=== PATIENT | female | born 1990 | race Two or more races ===

== ENCOUNTER 2025-01-07 10:51 | Outpatient (REF) | payer MEDICAID, SELFPAY ==
--- OUTSIDE RECORDS SUMMARY | 2025-01-07 09:00 | XMS_ITS | Encounter Summary ---
Author Organization [employer] Address [address] [place] [address] Care Team Providers Care Bail Attacher Name Role Phone Selam Ernst NP Primary Care Provider [phone] Encounter Details Date Type Department Care Team ([facility] st Contact Info) Description 01/07/2025 9:00 AM EST Office Visit [facility] [address] [place] [address] Selam Ernst NP [address] [place] [address] Nausea and vomiting, unspecified vomiting type (Primary Dx); Muscle spasm of right shoulder; Anxiety and depression; H/O hyperglycemia; Urinary urgency; Healthcare maintenance Social History Tobacco Use Types Packs/Day Years Used Date Smoking Tobacco: Every Day Cigarettes Passive Smoke Exposure: Current Smokeless Tobacco: Current Tobacco Cessation:Ready to Q uit: Not Asked; Counseling Given: Not Answered Depression Answer Date Recorded Patient Health Questionnaire-9 Score 18 01/07/2025 Patient Health Questionnaire-9 Score 18 01/07/2025 Last PHQ-9: Questionnaire Data Not on file 1 03/09/2024 Housing Stability Answer Date Recorded What is your housing situation today? I have kathleen nava 01/07/[address] you li ve. Do you have problems with any of the following? None of the above 01/07/2025 Food Insecurity Answer Date Recorded Within the past 12 months, y ou worried that your food would run out before you got money to buy more: Sometimes True 2024 Within the past 12 months,th e food you bought just didn't last and you didn't have enough money to get more: Sometimes True 01/07/2025 Transportation Answer Date Recorded In the past 12 months, has l ack of transportation kept you from medical appts, meetings, work or from getting things needed for daily living? No 01/07/2025 Utilities Answer Date Recorded In the past 12 months, has t he electric, gas, oil or water company threatened to shut off services in your home? No 01/07/2025 Depression Answer Date Recorded Patient Health Questionnaire-2 Score 2 01/07/2025 Internet Access Answer Date Recorded Internet Access Q1 Yes 01/07/2025 Internet Access Q2 Not on file 01/07/2025 Comments Unknown Sex and Gender Information Value Date Recorded Sex Assigned at Female 2024 4:00 PM EDT Legal Sex Female 9:49 AM EDT Gender Identity Female 01/06/2025 8:39 AM EST Sexual Orientation Straight 01/06/2025 8: 39 AM EST documented as of this encounter Last Filed Vital Signs Vital Sign Reading Time Taken Comments Blood Pressure 108/64 01/07/2025 9:40 AM EST Pulse 95 01/07/2025 9:40 AM EST Temperature 36.5 C (97.7 F) 01/07/2025 9:40 AM EST Respiratory Rate 14 01/07/2025 9:40 AM EST Oxygen Saturation 99% 01/07/2025 9:40 AM EST Inhaled Oxygen Concentration - - Weight 83.5 kg (184 lb) 01/07/2025 9:40 AM EST Height 166 cm (5' 5.35 ) 01/07/2025 9:40 AM EST Body Mass Index 30.29 01/07/2025 9:40 AM EST documented in this encounter Functional Status * Over the past 2 weeks, how often have you been bothered by any of the following problems? Question Answer Date of Assessment Author Patient Health Questionnaire-2 Score 2 01/07/2025 10:50 AM EST Char Schneider [place] * Little interest or pleasure in doing things Answer Date of Assessment Author Several days 01/07/2025 10:50 AM EST Char Madison [place], [place] * Feeling down, depressed, or hopeless Answer Date of Assessment Author Several days 01/07/2025 10:50 AM EST Char Madison [place], [place] * Trouble falling or staying asleep, or sleeping too much Answer Date of Assessment Author Nearly every day 01/07/2025 10:50 AM Char Alejandro MA * Feeling tired or having little energy Answer Date of Assessment Author Nearly every day 01/07/2025 10:50 AM Char Alejandro MA * Poor appetite or overeating Answer Date of Assessment Author Nearly every day 01/07/2025 10:50 AM Char Alejandro MA * Feeling bad about yourself - or that you are a failure or have let yourself or your family down Answer Date of Assessment Author Several days 01/07/2025 10:50 AM Char Garrido [place], [place] * Trouble concentrating on things, such as reading the newspaper or watching television Answer Date of Assessment Author Nearly every day 01/07/2025 10:50 AM Char Alejandro MA * Moving or speaking so slowly that other people could have noticed? Or the opposite - being so fidgety or restless that you have been moving around a lot more than usual. Answer Date of Assessment Author More than half the days 01/07/2025 10:50 AM Char Mendiola MA * Thoughts that you would be better off or hurting yourself in some way Answer Date of Assessment Author Several days 01/07/2025 10:50 AM Char Garrido [place], [place] * Patient Health Questionnaire-9 Score Answer Date of Assessment Author 18 01/07/2025 10:50 AM Char Garrido [place], [place] * How difficult have these problems made it for you to do your work, take care of things at home, or get along with other people? Answer Date of Assessment Author Somewhat difficult 01/07/2025 10:50 AM Char Mendiola MA * Over the last 2 weeks, how often have you been bothered by any of the following problems? Question Answer Date of Assessment Author Feeling nervous, anxious, or on edge 3 01/07/2025 10:50 AM Char Mendiola MA Not being able to stop or control worrying 3 01/07/2025 10:50 AM Char Mendiola MA Worrying too much about different things 3 01/07/2025 10:50 AM Char Mendiola MA Trouble relaxing 3 01/07/2025 10:50 AM Char Mendiola MA Being so restless that it is hard to sit still 2 01/07/2025 10:50 AM Char Mendiola MA Becoming easily annoyed or irritable 3 01/07/2025 10:50 AM Char Mendiola MA Feeling afraid as if something awful might happen 3 01/07/2025 10:50 AM Char Alejandro MA CHDA-7 Total Score 20 01/07/2025 10:50 AM Char Mendiola MA documented as of this encounter Progress Notes * Selam Ernst NP - 01/07/2025 9:00 AM EST Subjective: Juliette Perez is a 34 y.o. female who presents to the office for a new patient visit. She arrived from [place] this past August and was not seen by a doctor their. Interim history: She reports digestive symptoms since August. She has been vomiting everything including water. She has only been able to drink coffee and smoke cigarettes. She is having chest pain, abdominal pain, stomach ache, headaches, chills, dizziness. She reports that she has lost a lot of weight. Due to her inability to eat. The stomach pain starts when she eats and is relieved by vomiting. She always feelshungry. She reports constant shoulder and neck pain including 5 herniated discs since 25 yrs old. She has done physical therapy for this in the past. Reports urinary urgency and has noticed blood when she wipes Denies fever Problem List[1] Surgical History[2] Family History[3] Social History Living situation: cousin, mom, , 4 yr old. Came [place] 08/11/24 Employment/Education: [employer] Diet/exercise: regular diet, no exercise Substance use: -no alcohol -tobacco 1 pack/day -marijuana Sexual activity: yes Contraception: none Mental health: Patient Health Questionnaire-9 Score: 18 (01/07/2025 10:50 AM) Patient Health Questionnaire-2 Score: 2 (01/07/2025 10:50 AM) Thoughts that you would be better off or hurting yourself in some way: Several days (0:50 AM) CHAD-7 Total Score: 20 (01/07/2025 10:50 AM) Patient's last menstrual period was 12/18/2024 (exact date). Allergies[4] Review of Systems Constitutional: Positive for appetite change, fatigue and unexpected weight change. Negative for fever. Respiratory: Positive for chest tightness. Cardiovascular: Negative for leg swelling. Gastrointestinal: Positive for abdominal pain, anal bleeding, nausea and vomiting. Genitourinary: Positive for hematuria and urgency. Negative for dysuria. Musculoskeletal: Positive for arthralgias, myalgias, neck pain and neck stiffness. Skin: Negative for color change and rash. Neurological: Positive for dizziness, weakness, light-headedness and headaches. Hematological: Negative for adenopathy. Bruises/bleeds easily. Psychiatric/Behavioral: Positive for dysphoric mood. The patient is nervous/anxious. Vitals: 01/07/25 0940 BP: 108/64 BP Location: Left arm Patient Position: Sitting BP Cuff Size: Large adult Pulse: 95 Resp: 14 Temp: 97.7 ??F (36.5 ??C) TempSrc: Oral SpO2: 99% Weight: 184 lb (83.5 kg) Height: 5' 5.35 (1.66 m) PF: 95 L/min Physical Exam Constitutional: General: She is not in acute distress. Appearance: She is obese. She is not ill-appearing, toxic-appearing or diaphoretic. HENT: Head: Normocephalic. Eyes: General: Right eye: No discharge. Left eye: No discharge. Pupils: Pupils are equal, round, and reactive to light. Cardiovascular: Rate and Rhythm: Normal rate and regular rhythm. Heart sounds: Normal heart sounds. No murmur heard. No friction rub. No gallop. Pulmonary: Effort: Pulmonary effort is normal. No respiratory distress. Breath sounds: Normal breath sounds. No stridor. No wheezing, rhonchi or rales. Chest: Chest wall: No tenderness. Abdominal: General: Abdomen is flat. Bowel sounds are normal. Palpations: Abdomen is soft. There is no mass. Tenderness: There is abdominal tenderness. Hernia: No hernia is present. Musculoskeletal: Right shoulder: Tenderness present. Decreased range of motion. Cervical back: Rigidity and tenderness present. Lymphadenopathy: Cervical: No cervical adenopathy. Skin: General: Skin is warm and dry. Neurological: General: No focal deficit present. Mental Status: She is alert and oriented to person, place, and time. Psychiatric: Mood and Affect: Mood is depressed. Affect is tearful. Assessment & Plan Nausea and vomiting, unspecified vomiting type Patient reports this has been a problem for 5 months. test negative today. Abdominal pain is primarily in epigastric area. Will start Zofran to relieve nausea and vomiting while workup continues. Will check labs and consider GI referral. Differentials include gastritis, peptic ulcer, GERD, cholelithiasis, pancreatitis. Follow-up within 2 weeks after labs are completed. Orders: POCT Urine ondansetron (Zofran) 4 MG tablet; Take 2 tablets (8 mg) by mouth every 8 (eight) hours if needed for nausea or vomiting for up to 17 days. Comprehensive Metabolic Panel; Future CBC auto differential; Future Lipase; Future TSH W/Reflex to FT4; Future Muscle spasm of right shoulder Patient reports neck & shoulder pain has been a problem for at least 10 years, but has recentlyworsened. Physical exam revealed extreme muscle tension. Will do short course of muscle relaxer andfollow-up in 2 weeks. Will consider physical therapy and referral to physiatry. Orders: cyclobenzaprine (Flexeril) 10 MG tablet; Take 1 tablet (10 mg) by mouth 3 times daily for 17 days. Anxiety and depression Patient was tearful at this visit. CHAD-7 score: 20 PHQ-9 score: 18 was unable to consult at this visit, but made a phone appointment for next week. Patient is not suicidal/homicidal. Chose to focus on addressing patient's pain and nausea/vomiting at this time andwill discuss further mental health treatment at follow-up in 2 weeks. H/O hyperglycemia Glucose WNL today Orders: POCT Glucose POCT Hgb A1c Urinary urgency Denies dysuria. Urinalysis today was negative for UTI, but positive for small amount of blood. Willcheck labs and follow-up in 2 weeks. Orders: POCT Urinalysis Healthcare maintenance There was not enough time in this visit to address preventative care. Plan to discuss Pap Smear, immunizations, exercise and diet counseling at follow-up visit. Current Medications[5] There is no immunization history on file for this patient. Follow up in about 2 weeks (around 01/21/2025) for Recheck. [facility] MANAGER FINE Attestation MANAGER FINE Resident Attestation: Patient was seen and evaluated by Selam FELIPE , in collaboration with Radha Cárdenas MD who has reviewed my assessment and plan. I, Radha Cárdenas MD , have reviewed the resident's note and agree with the assessment & plan of care as documented above. Visit Conducted in: English Translation by: Provided by [employer] Phone Service ID # [id number] [1] There is no problem list on file for this patient. [2] No past surgical history on file. [3] No family history on file. [4] No Known Allergies [5] Current Outpatient Medications Medication Sig Dispense Refill cyclobenzaprine (Flexeril) 10 MG tablet Take 1 tablet (10 mg) by mouth 3 times daily for 17 days. 51 tablet 0 ondansetron (Zofran) 4 MG tablet Take 2 tablets (8 mg) by mouth every 8 (eight) hours if needed fornausea or vomiting for up to 17 days. 20 tablet 0 No current facility-administered medications for this visit. documented in this encounter Plan of Treatment Upcoming Encounters Date Type Department Care Team (Late st Contact Info) Description 01/26/2025 10:30 AM EST Office Visit [facility] [address] [place] [address] Selam Ernst NP [address] [place] [address] Scheduled Orders Name Type Priority Associated Diagnoses Orde r Schedule Comprehensive Metabolic Panel Lab Routine Nausea and vomiting, unspecified vomiting type Expected: 01/07/2025 (Approximate), Expires: 01/07/2026 CBC auto differential Lab Routine Nausea and vomiting, unspecified vomiting type Expected: 01/07/2025 (Approximate), Expires: 01/07/2026 Lipase Lab Routine Nausea and vomiting, unspecified vomiting type Expected: 01/07/2025, Expires: 01/07/2026 TSH W/Reflex to FT4 Lab Routine Nausea and vomiting, unspecified vomiting type Expected: 01/07/2025 (Approximate), Expires: 01/07/2026 documented as of this encounter Procedures Procedure Name Priority Date/Time Associated Diagnosis Comments POCT , URINE Routine 01/07/2025 10:22 AM EST Nausea and vomiting, unspecified vomiting type POCT URINALYSIS DIPSTICK Routine 01/07/2025 10:20 AM EST Urinary urgency POCT GLYCATED HEMOGLOBIN, TOTAL Routine 01/07/2025 9:44 AM EST H/O hyperglycemia POCT GLUCOSE Routine 01/07/2025 9:43 AM EST H/O hyperglycemia documented in this encounter Results * POCT Urine (01/07/2025 10:22 AM EST) Preg Test, Ur Negative Negative, Indeterminate, None Detected, Invalid, Specimen unsatisfactory for evaluation, Weakly Positive, 2+ QC Media Lot # [id number] Lot# Expiration Date Urine 01/07/2025 10:2 2 AM EST Selam Ernst NP POINT OF CARE TEST ENTER/EDIT O RDERABLES Final Result * (ABNORMAL) POCT Urinalysis (01/07/2025 10:20 AM EST) Color, UA Yellow Clarity, UA Clear Glucose, UA Negative Bilirubin, UA Trace Comment:small Ketones, UA Positive Comment:trace Spec Grav, UA 1.020 Blood, UA Positive(A) Negative, None Detected Comment:small pH, UA 6.5 Protein, UA Trace Urobilinogen, UA 1.0 Leukocytes, UA Negative Negative, Rare, Trace Nitrite, UA Negative Negative, None Detected Appearance, UA clear QC Media Lot # [id number] Lot# Expiration Date Urine (Urine, Random) 01/07/2025 10:20 AM EST Selam Ernst NP POINT OF CARE TEST ENTER/EDIT O RDERABLES Final Result * POCT Hgb A1c (01/07/2025 9:44 AM EST) Hemoglobin A1C 4.9 4.0 - 5.7 % QC Media Lot # [id number] Lot# Expiration Date Blood 01/07/2025 9:44 AM EST Selam Ernst NP POINT OF CARE TEST ENTER/EDIT O RDERABLES Final Result * POCT Glucose (01/07/2025 9:43 AM EST) Glucose Blood, POC 95 60 - 200 mg/dL Comment:Fasting QC Media Lot # [id number] Lot# Expiration Date ,579 Blood Capillary blood specimen / Unknown 01/07/2025 9:43 AM EST Selam Ernst NP POINT OF CARE TEST ENTER/EDIT O RDERABLES Final Result documented in this encounter Visit Diagnoses Diagnosis Nausea and vomiting, unspecified vomiting type- Primary Muscle spasm of right shoulder Anxiety and depression H/O hyperglycemia Urinary urgency Urgency of urination Healthcare maintenance documented in this encounter Additional Health Concerns Assessment Noted Time PHQ-9 Depression Total Score: 18 025 10:50 AM EST documented as of this encounter Care Teams Bail Attacher Relationship Specialty Start Date End Date Selam Ernst NP [address] [place] [id number] PCP - General Nurse Practitioner 01/07/25 documented as of this encounter
[2025-01-07 13:08] LABS: MANUAL DIFF FLAG NO
--- OUTSIDE RECORDS SUMMARY | 2025-01-07 13:09 | XMS_ITS | Clinical Summary ---
Author Organization [facility] [facility] Address [address] [facility] [address] [place] [address] Care Team Providers Care Garland Machine Operator Name Role Phone Selam Ernst NP Primary Care Provider [phone] Allergies No known active allergies Medications cyclobenzaprine (Flexeril) 10 MG tabletIndication s:Muscle spasm of right shoulder Take 1 tablet (10 mg) by mouth 3 times daily for 17 days. 51 tablet 5 01/25/20 25 Active ondansetron (Zofran) 4 MG tabletIndication s:Nausea and vomiting, unspecified vomiting type Take 2 tablets (8 mg) by mouth every 8 (eight) hours if needed for nausea or vomiting for up to 17 days. 20 tablet 5 01/25/20 25 Active Encounters Date Type Department Care Team Description 01/07/2025 9:00 AM EST Office Visit [facility] [address] [place] [phone] Selam Ernst NP Nausea and vomiting, unspecified vomiting type (Primary Dx); Muscle spasm of right shoulder; Anxiety and depression; H/O hyperglycemia; Urinary urgency; Healthcare maintenance 01/07/2025 Travel 01/06/2025 Telephone [facility] [address] [place] [address] [phone] Oswadlo Lama MA chart prep 12/03/2024 Population Health Risk Score [facility] ([facility]) Department [address] [place] [address] [phone] Provider, Population Health Generic 10/20/2024 Telephone [facility] [address] [place] [phone] Paulie Gilbert MD 10/19/2024 Telephone [facility] [address] [place] [address] Paulie Gilbert MD from Last 3 Months Social History Tobacco Use Types Packs/Day Years [...] your housing situation today? I have kathleen elijah 01/07/[address] you li [...] Orientation Straight 01/06/2025 8: 39 AM EST Last Filed Vital Signs Vital Sign Reading [...] Mass Index 30.29 01/07/2025 9:40 AM EST Plan of Treatment Upcoming Encounters Date Type Department Care Team (Late st Contact Info) Description 01/26/2025 10:30 AM EST Office Visit [facility] [address] [place] [address] Selam Ernst, ERIC [address] [place], [place] [phone] Health Maintenance Due Date Last Done Comments HIV Screening 1992 Lipid Panel 1992 Family Planning (PISQ) 12/16/2007 HPV Vaccines (1 - 3-dose series) 12/16/2007 Hepatitis C Screening 2010 DTaP/Tdap/Td Vaccines (1 - Tdap) 12/16/2011 Hepatitis B Vaccines (1 of 3 - 19+ 3-dose series) 12/16/2011 Pneumococcal Vaccine: Pediatrics (0 to 5 Years) and At-Risk Patients (6 to 49) Years (1 of 2 - PCV) 12/16/2011 Pap Smear 2013 Cervical Cancer Screening 2022 HPV/Cotest 2022 COVID-19 Vaccine (1 - 2023-2 5 season) 2024 Influenza Vaccine (#1) 2024 Depression Monitoring 07/07/2025 01/07/2025 , 01/07/2025 Alcohol/Substance Use Screening 01/07/2026 01/07/2025 Disability Screening 01/07/2026 01/07/2025 SDOH Screening 01/07/2026 01/07/2025 Tobacco Screening 01/07/2026 01/07/2025 Zoster Vaccines (1 of 2) 2042 RSV Patients and Patients Aged 60 years or older (1 - 1-dose 75+ series) 12/16/2067 HIB Vaccines Aged Out No longer eligi ble based on patient's age to complete this topic Hepatitis A Vaccines Aged Out No long er eligible based on patient's age to complete this topic IPV Vaccines Aged Out No longer eligi ble based on patient's age to complete this topic Meningococcal B Vaccine Aged Out No l onger eligible based on patient's age to complete this topic Meningococcal Vaccine Aged Out No yi deloris eligible based on patient's age to complete this topic RSV under 20 months Aged Out No longe r eligible based on patient's age to complete this topic Rotavirus Vaccines Aged Out No longer eligible based on patient's age to complete this topic Procedures Procedure Name Priority Date/Time Associated Diagnosis Comments POCT , URINE Routine 01/07/2025 10:22 AM EST Nausea and vomiting, unspecified vomiting type POCT URINALYSIS DIPSTICK Routine 01/07/2025 10:20 AM EST Urinary urgency POCT GLYCATED HEMOGLOBIN, TOTAL Routine 01/07/2025 9:44 AM EST H/O hyperglycemia POCT GLUCOSE Routine 01/07/2025 9:43 AM EST H/O hyperglycemia from Last 3 Months Results * POCT Urine (01/07/2025 10:22 AM EST) Preg Test, Ur Negative Negative, Indeterminate, None Detected, Invalid, Specimen unsatisfactory for evaluation, Weakly Positive, 2+ QC Media Lot # [id number] Lot# Expiration Date [id number] Urine 01/07/2025 10:2 2 AM EST Selam [...] Media Lot # [id number] Lot# Expiration Date Blood Capillary blood specimen / Unknown 01/07/2025 9:43 AM EST Selam Ernst NP POINT OF CARE TEST ENTER/EDIT O RDERABLES Final Result from Last 3 Months Insurance [facility] C3 Care Teams Garland Machine Operator Relationship Specialty Start Date End Date Selam Ernst NP [address] [place] [id number] PCP - General Nurse Practitioner 01/07/25
--- OUTSIDE RECORDS SUMMARY | 2025-01-07 13:09 | XMS_ITS | Encounter Summary ---
Author Organization [employer] Address [address] [facility] [address] [place] [address] Care Team Providers Care Associate Director Financial Aid Name Role Phone Unavailable Primary Care Provider Unavailabl e Reason for Visit * Reason Onset Date Comments chart prep 01/06/2025 Encounter Details Date Type Department Care Team ([facility] Contact Info) Description 01/06/2025 Telephone [facility] [address] [place] [address] Oswaldo Lama MA chart prep Social History Tobacco Use Types Packs/Day Years Used Date Smoking Tobacco: Never Assessed Depression Answer Date Recorded Patient Health Questionnaire-9 [...] AM EST documented as of this encounter Miscellaneous Notes * Telephone Encounter - Oswaldo Lama MA - 01/06/2025 3:04 PM EST Chart Prep Labs: not applicable Images: not applicable Referrals: not applicable Vaccines due: Covid, Flu, Tdap, Td, HPV, and DTAP Screenings: pap smear and LMP Overdue care gaps: SBIRT, SDOH, PHQ-9, CHAD-7, Oral health screening, and Disability screen documented in this encounter Plan of Treatment Upcoming Encounters Date Type Department Care Team (Late st Contact Info) Description 01/26/2025 10:30 AM EST Office Visit [facility] [address] [place], [place] [phone] Selam Ernst NP [address] [place] [address] documented as of this encounter Visit Diagnoses Not on filedocumented in this encounter
--- OUTSIDE RECORDS SUMMARY | 2025-01-07 13:09 | XMS_ITS | Patient Health Record ---
Author Organization [facility] Address [facility] [place] [address] Care Team Providers Care Sr. Vendor Management Associate Name Role Phone PEDRO SIL SOTO Primary Care Provider DAMIR OLIVEIRA Unavailable [phone] Reason For Referral No Information Medications Medication SIG (Take, Route, Frequency, Duration) Notes Start Date End Date Status Active Folic Acid Active Social History Tobacco Use: Social History Observation Description Date Details (start date - stop date) Never Smoker NA - NA Social History COVID-19 Social Info Question Answer Notes Cuestionario [place] COVID-19 Fecha 01/27/2020 Presenta algun sintoma: [place] Se smith realizado recientemente la prueba rapida o molecular para el COVID 19 No Conoce a alguien que haya sido positivo al COVID -19 No Smith participado de eventos pu blicos, sociales o familiares en los ultimos 14 wiley No Smith viajado fuera de [place] o smith estado en contacto con alguien que haya estado fuera de [place] en los pasados 14 wiley No [place] de Emergencia Social Info Question Answer Notes Historial Social Vivienda Con divya Sospecha de maltrato, violen sameer, u abuso sexual? No Viaje No viajo fuera de P.R. Inmunizacion al leatha Si Inmunizacion contra el tetano Si Transfuciones componentes sanguineos No Declina ser transfundido No Modo de llegada Auto Acompanado por Familiar Esposo Layton Chacon Tobacco Use: Social Info Question Answer Notes Tobacco Use/Smoking Are you a nonsmoker Section Notes: VISHAL LEE RN, ADN Lic . [id number], JOEY Araiza 01/09/2018 03:16:54 AM > VISHAL LEE RN, ADN Lic . [id number], JOEY M 01/09/2018 03:16:54 AM > VISHAL LEE RN, ADN Lic. [id number], JOEY M 01/09/2018 03:16:54 AM > MADDY SIBLEY RN, BSN Lic. [id number], JULIO CESAR 02/01/2018 08:32:15 PM > PRITESH XIONG RN BSN, Lic. [id number], ROSIBEL 01/27/2020 07:27:14 PM > Problems Problem Type SNOMED Code ICD Code Onset Dates Problem Status W/U Status Risk Notes Problem Drug allergy (351649205) Allergy history, drug (Z88.9) Active confirmed Plan Of Treatment No Information Insurance Providers Payer Name Payer Address Payer Phone Subscriber Number Group Number Insured Name Patient Relationship to Insured Coverage Start Date Coverage End Date MMM FFS PSG [address] [address] [place], [place] [id number] SHEREEN [place] Self - patient is the insured 0 0 Medical (General) History Medical History History ICD Code Discos herniados hipoglucemia gastritis Hospitalization History Reason Date(Month/Year) Gracie 28/01/2018
--- OUTSIDE RECORDS SUMMARY | 2025-01-07 13:09 | XMS_ITS | Encounter Summary ---
Author Organization [employer] Address [address] [facility] [address] [place] [address] Care Team Providers Care Automatic Chief Name Role Phone Selam Ernst NP Primary Care Provider [phone] Encounter Details Date Type Department Care Team (Latest Contact Info) Description 01/07/2025 Travel Social History Tobacco Use Types Packs/Day Years Used Date Smoking Tobacco: Every Day Cigarettes Passive Smoke Exposure: Current Smokeless Tobacco: Current Depression Answer Date Recorded Patient Health Questionnaire-9 [...] AM EST documented as of this encounter Functional Status * Over the past 2 weeks, how often have you been bothered by any of the following problems? Question Answer Date of Assessment Author Patient Health Questionnaire-2 Score 2 01/07/2025 10:50 AM Char Giles [place] * Little interest or pleasure in doing things Answer Date of Assessment Author Several days 01/07/2025 10:50 AM Char Garrido [place], [place] * Feeling down, depressed, or hopeless Answer Date of Assessment Author Several days 01/07/2025 10:50 AM Char Garrido [place], [place] * Trouble falling or staying [...] 3 01/07/2025 10:50 AM Char Alejandro MA CHAD-7 Total Score 20 01/07/2025 10:50 AM Char Mendiola [place] documented as of this encounter Plan of Treatment Upcoming Encounters Date Type Department Care Team (Late st Contact Info) Description 01/26/2025 10:30 AM EST Office Visit [facility] [address] [place] [address] Selam Ernst NP [address] [place] [address] documented as of this encounter Visit Diagnoses Not on filedocumented in this encounter Additional Health Concerns Assessment Noted Time PHQ-9 Depression Total Score: 18 025 10:50 AM EST documented as of this encounter Care Teams Automatic Chief Relationship Specialty Start Date End Date Selam Ernst NP [address] [place] [address] PCP - General Nurse Practitioner 01/07/25 documented as of this encounter
[2025-01-07 13:26] LABS: Hematocrit 43.0 % (37.0-47.0); Hemoglobin 14.3 g/dl (12.0-16.0); Imm Gran Abs Auto 0.01 X10*3/uL (0.00-0.03); Imm Gran Pct Auto 0.1 % (0.0-0.4); Lymphocytes Absolute Auto 2.0 X10*3/uL (1.2-4.9); Mean Corpuscular HGB Conc 33.3 g/dl (31.0-35.0); Mean Corpuscular Hemoglobin 31.1 pg (27.0-33.0); Mean Corpuscular Volume 93.5 fL (80.0-98.0); NRBC Abs Auto 0.000 X10*3/uL (0.0-0.012); NRBC Pct Auto 0.0 /100WBC (0.0-0.2); Platelet Count 226 X10*3/uL (160-400); Red Blood Count 4.60 X10*6/uL (4.20-5.50); White Blood Count 7.0 X10*3/uL (4.8-10.8)
[2025-01-07 14:05] LABS: Anion Gap 12 (12-20); Blood Urea Nitrogen 9 mg/dL (9-16); Carbon Dioxide 25 mmol/L (22-29); Chloride 108 mmol/L (96-108); Estimated Glomerular Filt Rate > 60; Potassium 4.1 mmol/L (3.3-5.1); Sodium 141 mmol/L (135-145)
[2025-01-07 14:06] LABS: Alanine Aminotransferase 33 U/L (0-31); Albumin Level 4.9 g/dL (3.5-5.0); Alkaline Phosphatase 71 U/L (39-117); Aspartate Amino Transferase 39 U/L (5-31); Calcium 9.7 mg/dL (8.4-10.2); Lipase 20 U/L (8-78); Total Protein 8.0 g/dL (6.5-8.0)
== END 2025-01-07 10:52 | disposition home or self-care (01) ==
LOC: HO.HHCL 10:51
DX: R11.2 Nausea with vomiting, unspecified (principal)
CPT/HCPCS: 36415; 80053; 83690; 84443; 85025

== ENCOUNTER 2025-02-09 06:31 | Emergency (ER) | payer MEDICAID, SELFPAY ==
[2025-02-09 06:54] VITALS: BP 110/60; PULSE 97; RESP 20; TEMP 36.2; O2SAT 100; BMI 29.5
--- NOTE | 2025-02-09 07:37 | ED_ITS ---
HPI - General Adult General Chief complaint: Skin/Abscess/Foreign Body Stated complaint: foreign skin/rash Source: patient Mode of arrival: ambulatory Limitations: no limitations History of Present Illness HPI narrative: Chief Complaint: ?Rash all over my body for the past two weeks.? History of Present Illness: 34-year-old female presents with a generalized rash that began on the shoulders two weeks ago and has progressively spread to involve the entire body. Initially evaluated by her PCP, where it was felt to be a reaction to Wellbutrin and treated with topical cortisone without improvement. The patient reports the rash is intensely itchy and uncomfortable; she now notes a burning sensation in the thigh regions. She denies any mucous membrane involvement. She describes two distinct morphologies: circular lesions on the abdomen that appear ?ring-like,? and elsewhere raised, warm, erythematous areas. The patient specifically notes that the rash on her abdomen seems to be different than the rash on the rest of her body. No household contacts with similar symptoms. Related Data Previous Rx's ?Medication ?Instructions ?Recorded cephalexin 500 mg tablet 500 mg PO Q6H 7 days #28 tab s 02/09/25 clotrimazole 1 % topical cream 1 appl topical BID 2 we eks #30 02/09/25 grams prednisone 20 mg tablet 40 mg (2 x 20 mg) PO DAILY 5 days 02/09/25 #10 tabs Allergies Allergy/AdvReac Type Severity Reaction Status Date / Time bupropion (From Wellbutrin) Allergy Rash Verified 02/09/25 07:01 Review of Systems Review of Systems: Skin: Positive for diffuse pruritic rash with burning sensation in thighs. Constitutional: Denies fever; appears nontoxic. Cardiorespiratory: Denies chest pain, shortness of breath. GI: Denies nausea, vomiting. Neurologic: Denies headache, dizziness, weakness. Eyes: Denies vision changes. No other systems reviewed. Yes all other systems are reviewed and are negative PMFSH Past Medical History Attestation statement: The following information was validated with the patient. Source: old records reviewed and nursing notes reviewed Social History Social History Advance Directives: No Advance Directives Information Provided: Yes Do you have a plan to hurt others: No Plan Physical Exam ED Exam Exam: General: Nontoxic appearing female in no acute distress. Skin: Diffuse raised erythematous lesions ( scapular region b/l) and errythema to inner thighs w/ exoriations; circular lesion on abdomen consistent with tinea-like appearance; no mucous membrane involvement. Cardiopulmonary: No respiratory or cardiac complaints noted on exam. Lungs clear. Regular rate and ryhem Vital Signs: Vital Signs - 24 hr 02/09/25 06:54 Temperature 97.2 F Pulse Rate 97 Respiratory Rate 20 Blood Pressure 110/60 Pulse Oximetry 100 Oxygen Delivery Method Room Air BMI result Body Mass Index 29.5 vss Medical Decision Making Medical Decision Making MDM Narrative: 34-year-old female with generalized pruritic rash, likely mixed etiologies (tinea corporis vs cellulitis vs drug eruption). Treated empirically and discharged. Problem?#1: Diffuse cellulitis Assessment: Raised, warm, erythematous lesions over multiple body areas concerning for superficial cellulitis. Plan: * Keflex prescribed at discharge. * Prednisone provided as adjunct per treating clinician. * Return precautions given for any new or worsening symptoms. Problem?#2: Tinea corporis (ringworm) Assessment: Circular lesion on abdomen characteristic of dermatophyte infection. Plan: * Clotrimazole topical cream prescribed. * If no improvement or spreading lesions, advised to return for re-evaluation. Differential Diagnosis Differential Diagnoses: The differential diagnosis associated with the presentation includes * Drug eruption: Recent exposure to Wellbutrin with rash onset following medication initiation; absence of mucous membrane involvement and lack of improvement with topical corticosteroids support this possibility. * Tinea corporis (ringworm): Presence of a distinct circular, ring-like lesion on the abdomen, differing in morphology from other affected areas, consistent with dermatophyte infection. * Cellulitis: Diffuse raised, warm, erythematous lesions on trunk and extremities suggest superficial skin infection. * Other dermatologic conditions: Consider urticaria, contact dermatitis, or pityriasis rosea given the generalized pruritic nature and variable morphologies of the rash. * Systemic infection: Less likely due to nontoxic appearance and absence of systemic symptoms such as fever, malaise, or organ involvement. * Autoimmune or connective tissue disease: Less likely in the absence of mucous membrane involvement, systemic features, or other suggestive findings. Admission/Observation Consideration of admission/observation: Escalation of care including admission/observation considered Lab Data No indication Discharge Plan Discharge Clinical Impression: Rash, Ringworm Patient Disposition: Home, Self-Care Instructions: Contact Dermatitis (ED), Acute Rash (ED) Additional Instructions: Take your medications as prescribed. If you were prescribed antibiotics today, it is important that you take your medication to their entirety, do not skip any doses, do not finish them early. Follow-up with your primary care provider this week. Return to the emergency department with new or worsening symptoms. In case of emergency call 911 Prescriptions: New clotrimazole 1 % cream 1 appl topical BID 14 Days Qty: 30 0RF prednisone 20 mg tablet 40 mg PO DAILY 5 Days Qty: 10 0RF cephalexin 500 mg tablet 500 mg PO Q6H 7 Days Qty: 28 0RF Referrals: Physician,Unknown J [Primary Care Provider, Medical] Print Language: Uzbek
[2025-02-09 07:43] VITALS: BP 110/60; PULSE 97; RESP 20; TEMP 36.2; O2SAT 100
--- OUTSIDE RECORDS SUMMARY | 2025-02-09 07:50 | XMS_ITS | Encounter Summary ---
Author Organization [employer] Address [address] [place] [address] [address] [place] [address] Care Team Providers Care Utility Clerk Name Role Phone Selam Ernst NP Primary Care Provider [phone] Encounter Details Date Type Department Care Team ([facility] Contact Info) Description 01/12/2025 Results Follow-Up [facility] [address] [place] [address] Selam Ernst, ERIC [address] [place] [address] POCT Glucose, POCT Hgb A1c, POCT Urine , Additional followed-up results: 5 Social History Tobacco Use Types Packs/Day Years Used Date Smoking Tobacco: Every Day Cigarettes Passive Smoke Exposure: Current Smokeless Tobacco: Current Depression Answer Date Recorded Patient Health Questionnaire-9 Score 19 01/14/2025 Patient Health Questionnaire-9 Score 19 01/14/2025 Last PHQ-9: Questionnaire Data Not on file 1 03/16/2024 Housing Stability Answer Date Recorded What is [...] Answer Date Recorded Patient Health Questionnaire-2 Score 4 01/14/2025 Internet Access Answer Date Recorded Internet Access [...] of Assessment Author Patient Health Questionnaire-2 Score 4 01/14/2025 10:42 AM Jg Crouch [facility] * Little interest or pleasure in doing things Answer Date of Assessment Author More than half the days 01/14/2025 10:42 AM Jg Retana [facility] * Feeling down, depressed, or hopeless Answer Date of Assessment Author More than half the days 01/14/2025 10:42 AM Jg Retana [facility] * Trouble falling or staying asleep, or sleeping too much Answer Date of Assessment Author More than half the days 01/14/2025 10:42 AM Jg Retana [facility] * Feeling tired or having little energy Answer Date of Assessment Author Nearly every day 01/14/2025 10:42 AM Jg Mills [facility] * Poor appetite or overeating Answer Date of Assessment Author Nearly every day 01/14/2025 10:42 AM Jg Mills [facility] * Feeling bad about yourself - or that you are a failure or have let yourself or your family down Answer Date of Assessment Author More than half the days 01/14/2025 10:42 AM Jg Retana [facility] * Trouble concentrating on things, such as reading the newspaper or watching television Answer Date of Assessment Author Nearly every day 01/14/2025 10:42 AM Jg Mills [facility] * Moving or speaking so slowly that other people could have noticed? Or the opposite - being so fidgety or restless that you have been moving around a lot more than usual. Answer Date of Assessment Author More than half the days 01/14/2025 10:42 AM Jg Retana [facility] * Thoughts that you would be better off or hurting yourself in some way Answer Date of Assessment Author Not at all 01/14/2025 10:42 AM Jg Sanabria LM[facility] * Patient Health Questionnaire-9 Score Answer Date of Assessment Author 19 01/14/2025 10:42 AM Jg Sanabria [facility] * Over the last 2 weeks, how often have you been bothered by any of the following problems? Question Answer Date of Assessment Author Feeling nervous, anxious, or on edge 3 01/14/2025 10:42 AM Jg Welch LM[facility] Not being able to stop or control worrying 3 01/14/2025 10:42 AM Jg Welch LM[facility] Worrying too much about different things 3 01/14/2025 10:42 AM Jg Welch LM[facility] Trouble relaxing 3 01/14/2025 10:42 AM Jg Retana LM[facility] Being so restless that it is hard to sit still 3 01/14/2025 10:42 AM Jg Welch LM[facility] Becoming easily annoyed or irritable 3 01/14/2025 10:42 AM Jg Welch LM[facility] Feeling afraid as if something awful might happen 3 01/14/2025 10:42 AM Jg Mills LMHC CHAD-7 Total Score 21 01/14/2025 10:42 AM Jg Retana LM[facility] * How difficult have these problems made it for you to do your work, take care of things at home, or get along with other people? Answer Date of Assessment Author Very difficult 01/14/2025 10:42 AM Jg Sanbaria LM[facility] documented as of this encounter Plan of Treatment Upcoming Encounters Date Type Department Care Team (Late st Contact Info) Description 02/18/2025 3:00 PM EST Office Visit [facility] [address] [place] [address] Selam Ernst NP [address] [place] [address] documented as of this encounter Visit Diagnoses Not on filedocumented in this encounter Additional Health Concerns Assessment Noted Time PHQ-9 Depression Total Score: 18 025 10:50 AM EST documented as of this encounter Care Teams Utility Clerk Relationship Specialty Start Date End Date Selam Ernst NP [address] [place] [address] PCP - General Nurse Practitioner 01/07/25 documented as of this encounter
--- OUTSIDE RECORDS SUMMARY | 2025-02-09 07:50 | XMS_ITS | Clinical Summary ---
Author Organization [employer] Address [address] [facility] [address] [place] [address] Care Team Providers Care Respiratory Equipment Assistant Name Role Phone Selam Ernst NP Primary Care Provider [phone] Allergies Active Allergy Reactions Criticality Noted Date Comments Bupropion Rash Low 01/26/2025 Medications * This document contains information received from the source organization and may not represent a complete record from that organization. cyclobenzaprine (Flexeril) 10 MG tabletIndication s:Muscle spasm of right shoulder Take 1 tablet (10 mg) by mouth if needed at bedtime for muscle spasms. 20 tablet 5 5:44 PM EST 01/15/20 25 025 Active ondansetron (Zofran) 4 MG tabletIndication s:Nausea 1-2 tablets PO TID prn nausea/vomi ting 30 tablet 5 5:44 PM EST 01/15/20 25 Active acetaminophen (Tylenol Extra Strength) 500 MG tablet Take 1 tablet (500 mg) by mouth every 6 (six) hours if needed for mild pain. 120 tablet 5 3:54 PM EST 01/15/20 25 025 Active senna-docusate (Senokot S) 8.6-50 MG tablet Take 1 tablet by mouth if needed each day for constipatio n. 30 tablet 5 3:54 PM EST 01/15/20 25 026 Active polyethylene glycol, PEG, 3350 (MiraLax) 17 GM/SCOOP powderIndication s:Constipation, unspecified constipation type Take 17 g by mouth Once per day. 510 g 5 4:40 PM EST 01/27/20 25 Active psyllium (Metamucil Smooth Texture) 58.6 % powderIndication s:Constipation Take 5.12 g (3 g of fiber) by mouth Once per day. 154 g 11 01/27/20 25 026 Active betamethasone dipropionate 0.05 % creamIndications :Eczema, unspecified type Apply 2 times daily for up to 14 days 45 g 5 4:40 PM EST 01/27/20 Active Omeprazole 20 MG tablet delayed-releaseI ndications:Pepti c ulcer disease Take 1 tablet (20 mg) by mouth 2 times daily. 60 tablet 3 01/27/20 Active escitalopram (Lexapro) 5 MG tabletIndication s:Anxiety,Modera tely severe major depression (CMS/HCC) (HCC) Take 1 tablet (5 mg) by mouth Once per day. 30 tablet 2 5 4:40 PM EST 01/27/20 25 026 Active hydrOXYzine HCl (Atarax) 25 MG tabletIndication s:Anxiety Take 1 tablet (25 mg) by mouth if needed each day for anxiety. 30 tablet 5 4:40 PM EST 01/27/20 Active cyclobenzaprine (Flexeril) 10 MG tabletIndication s:Muscle spasm of right shoulder Take 1 tablet (10 mg) by mouth 3 times daily for 17 days. 51 tablet 01/08/20 25 025 Discontinued(Re order (will not trigger notification to Pharmacy)) ondansetron (Zofran) 4 MG tabletIndication s:Nausea and vomiting, unspecified vomiting type Take 2 tablets (8 mg) by mouth every 8 (eight) hours if needed for nausea or vomiting for up to 17 days. 20 tablet 01/08/20 25 025 Discontinued(Re order (will not trigger notification to Pharmacy)) Omeprazole 20 MG tablet delayed-release Take 1 tablet (20 mg) by mouth Once per day. 60 tablet 01/15/20 25 025 Discontinued sucralfate (Carafate) 1 g tablet Take 1 tablet (1 g) by mouth before breakfast, before lunch, and before evening meal for 10 days. 30 tablet 3:54 PM EST 01/15/20 25 025 buPROPion SR (Wellbutrin SR) 150 MG 12 hr tablet Take 1 tablet (150 mg) by mouth 2 times daily. Do not crush, chew, or split. 60 tablet 2 3:54 PM EST 01/15/20 25 025 Discontinued(Si de effects) Active Problems Problem Noted Date Diagnosed Date Moderately severe major depression (CMS/HCC) Assessment & Plan (01/26/2025 11:51 AM EST): Orders: escitalopram (Lexapro) 5 MG tablet; Take 1 tablet (5 mg) by mouth Once per day. 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 Currently with passive SI, no plan apretude the factors include roman catholic and cultural beliefs + wants to be around for her 4-year-old son and wants to help her mother get better. She also has a job which evaluation wants to keep Started on Wellbutrin and follow-up with PCP in 3 to 4 weeks Patient feels safe at home and she will reach out to us in case of an emergency, she also has crisis number and we will put her on speed Dial. Anxiety 01/14/2025 Assessment & Plan (01/26/2025 11:51 AM EST): - Anxiety with episodes of panic attacks, chest pain, and palpitations. Wellbutrin discontinued due to suspected adverse reaction. - Initiated Lexapro at lowest dose, with option to titrate as needed. Prescribed hydroxyzine as needed for acute panic attacks. Scheduled follow-up in 2 to 4 weeks to monitor response to new medication. - Risks and side effects: hydroxyzine may cause drowsiness. Orders: escitalopram (Lexapro) 5 MG tablet; Take 1 tablet (5 mg) by mouth Once per day. hydrOXYzine HCl (Atarax) 25 MG tablet; Take 1 tablet (25 mg) by mouth if needed each day for anxiety. Acute gastritis without hemorrhage 01/14/2025 Assessment & Plan (01/14/2025 11:45 AM EST): - Prescribed sucralfate before meals for one week. - Rx omeprazole daily on an empty stomach for two months - Continue ondansetron in the morning and at night, Reduce Flexeril use to evenings only if needed (has side effect: sedation). Advised to consume nutritional supplements such as Ensure or carnation breakfast during the day. - Advised to avoid smoking both nicotine and cannabis which can worsen both gastric symptoms and anxiety. -Discussed red flags to go to ED: Persistent vomiting, fever, icterus, absent of BMx1+ week, GIB Elevated liver function tests 01/14/2025 Assessment & Plan (01/14/2025 11:41 AM EST): To [facility] PCP. Encounters * This document contains information received from the source organization and may not represent a complete record from that organization. Date Type Department Care Team Description 01/26/2025 10:30 AM EST Office Visit [facility] [address] [place] [phone] Sealm Ernst NP Eczema, unspecified type (Primary Dx); Peptic ulcer disease; Cervical radiculopathy; Constipation, unspecified constipation type; Anxiety; Moderately severe major depression (CMS/HCC) (HCC) 01/26/2025 Travel 01/25/[address] [facility] [address] [place] [phone] Selam Ernst NP Chart Prep 01/14/2025 11:00 AM EST Office Visit [facility] [address] [place] [phone] Juliette Joshi MD Acute gastritis without hemorrhage, unspecified gastritis type (Primary Dx); Elevated liver function tests; Moderately severe major depression (CMS/HCC) (HCC); Muscle spasm of right shoulder; Nausea; Epigastric pain 01/14/2025 Travel 01/14/[address] [facility] [address] [place] [phone] Selam Ernst NP Care Coordination ([facility] outreach for [facility] housing search-referral completed ) 01/13/[address] [facility] [place] [address] Oswaldo Lama MA Results 01/12/2025 Results Follow-Up [facility] [place] [address] Selam Ernst NP POCT Glucose, POCT Hgb A1c, POCT Urine , Additional followed-up results: 5 01/07/2025 9:00 AM EST Office Visit [facility] [place] [address] Selam Ernst NP Nausea and vomiting, unspecified vomiting type (Primary Dx); Muscle spasm of right shoulder; Anxiety and depression; H/O hyperglycemia; Urinary urgency; Healthcare maintenance 01/07/2025 Travel 01/06/2025 Telephone [facility] [place] [address] Oswaldo Lama MA chart prep 12/03/2024 Population Health Risk Score [facility] () Department [address] [place] [phone] Provider, Population Health Generic from Last 3 Months Social History Tobacco [...] Sign Reading Time Taken Comments Blood Pressure 124/68 01/26/2025 10:29 AM EST Pulse 99 01/26/2025 10:29 AM EST Temperature 36.6 C (97.8 F) 01/26/2025 10:29 AM EST Respiratory Rate 18 01/26/2025 10:29 AM EST Oxygen Saturation 98% 01/26/2025 10:29 AM EST Inhaled Oxygen Concentration - - Weight 83.1 kg (183 lb 4 oz) 01/26/2025 10:29 AM EST Height 167.6 cm (5' 6 ) 01/26/2025 10:29 AM EST Body Mass Index 29.58 01/26/2025 10:29 AM EST Plan of Treatment Upcoming Encounters Date Type Department Care Team (Late st Contact Info) Description 02/18/2025 3:00 PM EST Office Visit [facility] [address] [place] [address] Selam Ernst NP [address] [place], [place] [phone] Health Maintenance Due Date Last Done Comments [...] 2022 HPV/Cotest 2022 COVID-19 Vaccine (1 - 2024-2 6 season) 2024 Influenza Vaccine (#1) 2024 Depression Monitoring 07/14/2025 01/14/2025 , 01/14/2025 Alcohol/Substance Use Screening 01/07/2026 01/07/2025 Disability Screening 01/07/2026 01/07/2025 SDOH Screening 01/07/2026 01/07/2025 Tobacco Screening 01/26/2026 01/26/2025 Zoster Vaccines (1 of 2) 2042 RSV [...] Name Priority Date/Time Associated Diagnosis Comments POCT INFLUENZA A (ID NOW RAPID MOLECULAR) Routine 01/14/2025 11:35 AM EST Nausea POCT INFLUENZA B (ID NOW RAPID MOLECULAR) Routine 01/14/2025 11:34 AM EST Nausea POCT RAPID COVID ANTIGEN Routine 01/14/2025 11:26 AM EST Nausea TSH W/REFLEX TO FT4 Routine 01/07/2025 1 1:06 AM EST Nausea and vomiting, unspecified vomiting type LIPASE Routine 01/07/2025 11:06 AM EST Nausea and vomiting, unspecified vomiting type CBC WITH AUTO DIFFERENTIAL Routine 01/07/2025 11:06 AM EST Nausea and vomiting, unspecified vomiting type COMPREHENSIVE METABOLIC PANEL Routine 01/07/2025 11:06 AM EST Nausea and vomiting, unspecified vomiting type POCT , URINE Routine 01/07/2025 10:22 AM EST Nausea and vomiting, unspecified vomiting type POCT URINALYSIS DIPSTICK Routine 01/07/2025 10:20 AM EST Urinary urgency POCT GLYCATED HEMOGLOBIN, TOTAL Routine 01/07/2025 9:44 AM EST H/O hyperglycemia POCT GLUCOSE Routine 01/07/2025 9:43 AM EST H/O hyperglycemia from Last 3 Months Results * POCT Rapid Influenza A JI ID NOW (01/14/2025 11:35 AM EST) Pathologist [facility] Influenza A Negative Negative, Indeterminate [facility] QC Media Lot # [id number] [facility] Lot# Expiration Date [id number] [facility] Swab 01/14/2025 11:3 5 AM EST us Juliette Joshi MD POINT OF CARE TEST ENTER /EDIT ORDERABLES Final Result [facility] [address] [place] [phone] * POCT Rapid Influenza B JI ID NOW (01/14/2025 11:34 AM EST) Pathologist [facility] Influenza B Negative Negative, Indeterminate [facility] QC Media Lot # [id number] [facility] Lot# Expiration Date [facility] Swab 01/14/2025 11:3 4 AM EST Juliette Joshi MD POINT OF CARE TEST ENTER /EDIT ORDERABLES Final Result Performing Organization Address [facility] Co de Phone Number [facility] [address] [place] [phone] * POCT Rapid Covid-19 BinaxNOW (01/14/2025 11:26 AM EST) [facility] Rapid COVID Ag Negative QC Media Lot # [id number] Lot# Expiration Date 846 Swab 01/14/2025 11:2 6 AM EST Juliette Joshi MD POINT OF CARE TEST ENTER /EDIT ORDERABLES Final Result * TSH W/Reflex to FT4 (01/07/2025 11:06 AM EST) [facility] TSH reflex Free T4 0.63 0.32 - 4.0 uIU/mL [facility] Blood Venous blood specimen / Unknown 01/07/2025 11:06 AM EST 01/07/2025 1:00 PM EST us Selam Ernst NP LAB BLOOD ORDERABLES Final Resu lt Performing Organization Address City/[facility]/ZIP Co de Phone Number [facility] [address] [place] [address] [phone] * CBC auto differential (01/07/2025 11:06 AM EST) [facility] White Blood Count 7.0 4.8 - 10.8 X10*3/uL [facility] Red Blood Count 4.60 4.20 - 5.50 X10*6/uL [facility] Hemoglobin 14.3 12.0 - 16.0 g/dl [facility] Hematocrit 43.0 37.0 - 47.0 % [facility] Mean Corpuscular Volume 93.5 80.0 - 98.0 fL [facility] Mean Corpuscular Hemoglobin 31.1 27.0 - 33.0 pg [facility] Mean Corpuscular HGB Conc 33.3 31.0 - 35.0 g/dl [facility] Red Cell Distribution Width 12.1 11.0 - 16.0 % [facility] Platelet Count 226 160 - 400 X10*3/uL [facility] Mean Platelet Volume 11.6 9.4 - 12.3 fL [facility] Neutrophils Percent Auto 61.4 45 - 73 % [facility] Imm Gran Pct Auto 0.1 0.0 - 0.4 % [facility] Lymphocytes Percent Auto 29.0 20 - 40 % [facility] Monocytes Percent Auto 7.6 2 - 11 % [facility] Eosinophils Percent Auto 1.6 0 - 4 % [facility] Basophils Percent Auto 0.3 0 - 2 % [facility] NRBC Pct Auto 0.0 0.0 - 0.2 /100WBC [facility] Neutrophils Absolute Auto 4.3 2.0 - 8.3 x10*3/uL [facility] Imm Gran Abs Auto 0.01 0.00 - 0.03 X10*3/uL [facility] Lymphocytes Absolute Auto 2.0 1.2 - 4.9 X10*3/uL [facility] Monocytes Absolute Auto 0.5 0.1 - 1.2 X10*3/uL [facility] Eosinophils Absolute Auto 0.1 0.0 - 0.4 X10*3/uL [facility] Basophils Absolute Auto 0.0 0.0 - 0.2 X10*3/uL [facility] NRBC Abs Auto 0.000 0.0 - 0.012 X10*3/uL [facility] Blood Venous blood specimen / Unknown 01/07/2025 11:06 AM EST 01/07/2025 1:00 PM EST Selam Sujata ENVIRONMENTAL ENGINEER SCIENTIST LAB BLOOD ORDERABLES Final Resu lt Performing Organization Address City/[facility]/ZIP Co de Phone Number [facility] [address] [place] [phone] * Lipase (01/07/2025 11:06 AM EST) Lipase 20 8 - 78 U/L [facility] Blood Venous blood specimen / Unknown 01/07/2025 11:06 AM EST 01/07/2025 1:00 PM EST Selam Ernst ENVIRONMENTAL ENGINEER SCIENTIST LAB BLOOD ORDERABLES Final Resu lt Performing Organization Address [facility]/ZIP Co de Phone Number [facility] [address] [place] [phone] * (ABNORMAL) Comprehensive Metabolic Panel (01/07/2025 11:06 AM EST) Pathologist [facility] Sodium 141 135 - 145 mmol/L [facility] Potassium 4.1 3.3 - 5.1 mmol/L [facility] Chloride 108 96 - 108 mmol/L [facility] Carbon Dioxide 25 22 - 29 mmol/L [facility] Anion Gap 12 12 - 20 [facility] Urea Nitrogen (BUN) 9 9 - 16 mg/dL [facility] Creatinine, Serum 0.77 0.5 - 1.4 mg/dL [facility] Estimated Glomerular Filt Rate >60 [facility] Comment:Chronic Kidney Disea se: Estimated GFR < 60 mL/min/[id number] Kidney Disease: Estimated GFR < 15 mL/min/1.73m2 Glucose 79 60 - 115 mg/dL [facility] Calcium 9.7 8.4 - 10.2 mg/dL [facility] Bilirubin, Total 0.9 0.0 - 1.0 mg/dL [facility] Aspartate Amino Transferase 39(H) 5 - 31 U/L [facility] Alanine Aminotransferase 33(H) 0 - 31 U/L [facility] Total Protein 8.0 6.5 - 8.0 g/dL [facility] Albumin Level 4.9 3.5 - 5.0 g/dL [facility] Alkaline Phosphatase 71 39 - 117 U/L [facility] Blood Venous blood specimen / Unknown 01/07/2025 11:06 AM EST 01/07/2025 1:00 PM EST Selam Ernst NP LAB BLOOD ORDERABLES Final Resu lt [facility] [address] [place] [phone] * POCT Urine (01/07/2025 10:22 AM EST) [...] Media Lot # [id number] Lot# Expiration Date ,026 Blood Capillary blood specimen / Unknown 01/07/2025 9:43 AM EST Selam Ernst NP POINT OF CARE TEST ENTER/EDIT O RDERABLES Final Result from Last [address] [place] [address] [place] [address] C3 Care Teams Respiratory Equipment Assistant Relationship Specialty Start Date End Date Selam Ernst NP [address] [place] [phone] PCP - General Nurse Practitioner 01/07/25
== END 2025-02-09 07:44 | disposition home or self-care (01) ==
PROVIDERS: Emergency Provider Emergency Medicine
DX: R21 Rash and other nonspecific skin eruption (principal); B35.4 Tinea corporis
CPT/HCPCS: 99282; 99283

== ENCOUNTER 2025-02-17 13:32 | Outpatient (REF) | payer MEDICAID, SELFPAY ==
--- OUTSIDE RECORDS SUMMARY | 2025-02-14 11:00 | XMS_ITS | Encounter Summary ---
Author Organization [employer] Address [address] [facility] [address] [place] [address] Care Team Providers Care Parts Counter Specialist Name Role Phone Selam Ernst NP Primary Care Provider [phone] Reason for Visit * Reason Comments Rash Anxiety Encounter Details Date Type Department Care Team ([facility] Contact Info) Description 02/14/2025 11:00 AM EST Office Visit [facility] [address] [place] [address] Aaron Cooper MD [address] [place] [address] Rash (Primary Dx); Nasal congestion; Cigarette nicotine dependence without complication Social History Tobacco Use Types Packs/Day Years [...] Sign Reading Time Taken Comments Blood Pressure 137/85 02/14/2025 11:30 AM EST Pulse 103 02/14/2025 11:30 AM EST Temperature 37 C (98.6 F) 02/14/2025 11:30 AM EST Respiratory Rate 18 02/14/2025 11:30 AM EST Oxygen Saturation 99% 02/14/2025 11:30 AM EST Inhaled Oxygen Concentration - - Weight 83.5 kg (184 lb) 02/14/2025 11:30 AM EST Height - - Body Mass Index 29.7 02/10/2025 2:41 PM EST documented in this encounter Progress Notes * Aaron Cooper MD - 02/14/2025 11:00 AM EST Subjective Patient ID: Juliette Perez is a 34 y.o. female. 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 HPI Juliette has 4 week h/o diffuse itchy, painful rash, mainly on trunk, proximal extremities. Touching therash or even having clothes on makes pain and itching worse. Was seen in [facility] 01/26, was prescribed cetirizine, betamethasone dipropionate 0.05% that she used 9x/day with some relief until it ran out. Rash started several days after starting Wellbutrin SR 150 mg, and she is continued it as advised at [facility] visit. States was seen in [facility] 5 days ago, prescribed Keflex, clotrimazole 1% cream, prednisone 40 mg every day for 5 days, all of which is not helping. [facility] record is not available at this time. Was seen again in [facility] 4 days ago, prescribed Zyrtec, Pepcid, Benadryl, which are not helping. Denies SOB, swelling, sensation of throat tightness, new soap, shampoo, detergent, or deodorant. Denies tick bite, or known contacts who have a rash. Also tied OTC Benadryl Itch Stopping Gel with no relief. Lives with daughters, son, granddaughter, Aunt. LMP=02/07. 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 Smokes 1PPD. Patient Active Problem List Diagnosis Date Noted Moderately severe major depression (CMS/HCC) (HCC) 01/14/2025 Anxiety 01/14/2025 Acute gastritis without hemorrhage 01/14/2025 Elevated liver function tests 01/14/2025 The following portions of the chart were reviewed this encounter and updated as appropriate: Tobacco Allergies Meds Problems Med Hx Surg Hx Fam Hx Review of Systems Constitutional: Negative for fever. Respiratory: Negative for shortness of breath. Cardiovascular: Negative for chest pain. Gastrointestinal: Negative for abdominal pain. Skin: Positive for rash. Neurological: Negative for headaches. Objective Physical Exam Constitutional: Appearance: Normal appearance. Comments: This somewhat uncomfortable due to rash. She is standing because she states sitting or having anything touch her skin makes the sensation worse. HENT: Nose: Nose normal. Mouth/Throat: Mouth: Mucous membranes are moist. Pharynx: Oropharynx is clear. Eyes: Conjunctiva/sclera: Conjunctivae normal. Pupils: Pupils are equal, round, and reactive to light. Cardiovascular: Rate and Rhythm: Normal rate and regular rhythm. Heart sounds: No murmur heard. Pulmonary: Effort: Pulmonary effort is normal. Breath sounds: Normal breath sounds. Musculoskeletal: General: Normal range of motion. Cervical back: No tenderness. Skin: Findings: No rash. Comments: Several confluent areas over the upper back and lower abdomen upper arms near deltoid areas, and thighs of slightly erythematous, irregular rash with several round macular lesions with central clearing. Neurological: Mental Status: She is alert. Gait: Gait is intact. Psychiatric: Mood and Affect: Mood normal. Behavior: Behavior normal. Procedures Assessment/Plan Diagnoses and all orders for this visit: Rash Negative rapid Covid and Influenza tests. ? Erythema multiforme related to ?Wellbutrin. Lab tests ordered. Will call patient with results. Dr. Cárdenas kindly examined the patient and agreed to have her come to his dermatology clinic in [facility] tomorrow for skin biopsy. She was scheduled for 11:30 AM tomorrow. She was given Kenalog 40 mg IM. - triamcinolone acetonide (Kenalog-40) injection 40 mg - Lyme Disease Ab with Reflex to Blot (IgG, IgM); Future - JULIETTE Screen,IFA, with Reflex to Titer and Pattern; Future - Sed Rate by Modified Westergren; Future - RPR (Monitor) with Reflex to Titer; Future - Influenza B (ID NOW Rapid Molecular) - Influenza A (ID NOW Rapid Molecular) - POCT Rapid COVID Ag Cigarette nicotine dependence without complication Other orders - nicotine (Nicoderm CQ) 14 MG/24HR patch; Place 1 patch on the skin 1 (one) time each day at the same time. - nicotine (Nicoderm CQ) 21 MG/24HR patch; Place 1 patch on the skin 1 (one) time each day at the same time. - nicotine (Nicoderm CQ) 7 MG/24HR patch; Place 1 patch on the skin 1 (one) time each day at the same time. - nicotine polacrilex (Commit) 4 MG lozenge; Dissolve 1 lozenge (4 mg) in the mouth every 2 (two) hours if needed for smoking cessation. documented in this encounter Plan of Treatment Upcoming Encounters Date Type Department Care Team (Late st Contact Info) Description 02/18/2025 3:00 PM EST Office Visit [facility] [address] [place], [place] [phone] Selam Ernst NP [address] [place], [place] [phone] 02/22/2025 1:30 PM EST Clinical Support [facility] [address] [place] [address] Scheduled Orders Name Type Priority Associated Diagnoses Orde r Schedule Lyme Disease Ab with Reflex to Blot (IgG, IgM) Lab Routine Rash Expected: 02/14/2025, Expires: 02/14/2026 JULIETTE Screen,IFA, with Reflex to Titer and Pattern Lab Routine Rash Expected: 02/14/2025 (Approximate), Expires: 02/14/2026 RPR (Monitor) with Reflex to Titer Lab Routine Rash Expected: 02/14/2025 (Approximate), Expires: 02/14/2026 documented as of this encounter Procedures Procedure Name Priority Date/Time Associated Diagnosis Comments SED RATE BY MODIFIED WESTERGREN Routine 02/17/2025 1:38 PM EST Rash POCT INFLUENZA B (ID NOW RAPID MOLECULAR) Routine 02/14/2025 11:36 AM EST Nasal congestion POCT INFLUENZA A (ID NOW RAPID MOLECULAR) Routine 02/14/2025 11:35 AM EST Nasal congestion POCT RAPID COVID ANTIGEN Routine 02/14/2025 11:35 AM EST Nasal congestion documented in this encounter Results * Sed Rate by Modified Westergren (02/17/2025 1:38 PM EST) Pathologist [facility] Erythrocyte Sedimentation Rate 14 1 - 20 MM/HR [facility] Comment:Patients with polycy themia and many hemoglobin abnormalitiesmay have depressed sed rates whereas patients with anemiamay have elevated sed rates. Blood Venous blood specimen / Unknown 02/17/2025 1:38 PM EST 02/17/2025 4:00 PM EST us Aaron Cooper MD LAB BLOOD ORDERABLES Final Resul t [facility] [address] [place] [phone] * Influenza B (ID NOW Rapid Molecular) (02/14/2025 11:36 AM EST) Pathologist [facility] Influenza B Negative Negative, Indeterminate [facility] Swab 02/14/2025 11:3 6 AM EST us Aaron Cooper MD POINT OF CARE TEST ENTER/EDIT OR DERABLES Final Result Performing Organization Address [facility] Co de Phone Number [facility] [address] [place] [phone] * POCT Rapid COVID Ag (02/14/2025 11:35 AM EST) Rapid COVID Ag Negative Swab 02/14/2025 11:3 5 AM EST us Aaron Cooper MD POINT OF CARE TEST ENTER/EDIT OR DERABLES Final Result * Influenza A (ID NOW Rapid Molecular) (02/14/2025 11:35 AM EST) Influenza A Negative Negative, Indeterminate [facility] Swab 02/14/2025 11:3 5 AM EST us Aaron Cooper MD POINT OF CARE TEST ENTER/EDIT OR DERABLES Final Result Performing Organization Address [facility] Co de Phone Number [facility] [address] [place] [phone] documented in this encounter Visit Diagnoses Diagnosis Rash- Primary Rash and other nonspecific skin eruption Nasal congestion Other diseases of nasal cavity and sinuses Cigarette nicotine dependence without complication documented in this encounter Administered Medications Inactive Administered Medications - up to 3 most recent administrations Medication Order MAR Action Action Date Dose Rate Site triamcinolone acetonide (Kenalog-40) injection 40 mg 40 mg, Intramuscular, Once, On Fri02/14/25 at 1230, For 1 doseIndications:Rash Given 02/14/2025 12:30 PM EST 40 mg Right Upper Buttock documented in this encounter Additional Health Concerns Assessment Noted Time PHQ-9 Depression Total Score: 19 01/14/2 025 10:42 AM EST documented as of this encounter Care Teams Parts Counter Specialist Relationship Specialty Start Date End Date Selam Ernst NP [address] [place] [phone] PCP - General Nurse Practitioner 01/07/25 documented as of this encounter
--- OUTSIDE RECORDS SUMMARY | 2025-02-15 11:30 | XMS_ITS | Encounter Summary ---
Author Organization [employer] Address [address] [facility] [address] [place] [address] Care Team Providers Care Matcher Operator Name Role Phone Selam Ernst NP Primary Care Provider [phone] Reason for Visit * Reason Comments Rash Encounter Details Date Type Department Care Team ([facility] Contact Info) Description 02/15/2025 11:30 AM EST Office Visit [facility] [address] [place] [address] Radha Cárdenas MD [address] [place] [address] Rash (Primary Dx) Social History Tobacco Use Types Packs/Day Years [...] Sign Reading Time Taken Comments Blood Pressure 122/71 02/15/2025 11:35 AM EST Pulse 97 02/15/2025 11:35 AM EST Temperature 36.9 C (98.4 F) 02/15/2025 11:35 AM EST Respiratory Rate 21 02/15/2025 11:35 AM EST Oxygen Saturation 96% 02/15/2025 11:35 AM EST Inhaled Oxygen Concentration - - Weight 81.6 kg (180 lb) 02/15/2025 11:35 AM EST Height 167.6 cm (5' 6 ) 02/15/2025 11:35 AM EST Body Mass Index 29.05 02/15/2025 11:35 AM EST documented in this encounter Progress Notes * Radha Cárdenas MD - 02/15/2025 11:30 AM ESTAssociated Order(s): Skin Biopsy Post-Procedure Diagnose(s): Rash SUBJECTIVE Juliette Perez is a 34 y.o. female who presents for Rash. Rash Pertinent negatives include no cough or eye pain. Here for a skin biopsy. History as per the Previous note from Dr Cooper reviewed. Pt received a Kenalog injection yesterday w/ partial alleviation of the itchiness. Problem List[1] Allergies[2] Medications Ordered Prior to Encounter[3] Review of Systems Constitutional: Negative for appetite change, chills and diaphoresis. Eyes: Negative for photophobia, pain and redness. Respiratory: Negative for cough and choking. Skin: Positive for rash. OBJECTIVE Vitals: 02/15/25 1135 BP: 122/71 BP Location: Left arm Patient Position: Sitting BP Cuff Size: Adult long Pulse: 97 Resp: 21 Temp: 98.4 ??F (36.9 ??C) TempSrc: Oral SpO2: 96% Weight: 180 lb (81.6 kg) Height: 5' 6 (1.676 m) Physical Exam Constitutional: General: She is not in acute distress. Appearance: Normal appearance. She is not ill-appearing, toxic-appearing or diaphoretic. Pulmonary: Effort: Pulmonary effort is normal. Skin: Comments: Multiple round lesions w/ central clearing of the abdomen, back and upper limbs. Ill defined Erythematous patches of the upper back Neurological: Mental Status: She is alert. Patient ID: Juliette Perez is a 34 y.o. female. Skin Biopsy Date/Time: 02/15/2025 1:11 PM Performed by: Radha Cárdenas MD Authorized by: Radha Cárdenas MD Consent: Consent obtained: Verbal and written Consent given by: Patient Procedure risks and benefits discussed: Yes Patient questions answered: No Patient agrees, verbalizes understanding, and wants to proceed: No Educational handouts given: No Instructions and paperwork completed: Yes [place] protocol: Procedure explained and questions answered to patient or proxy's satisfaction: yes Relevant documents present and verified: no Test results available: no Imaging studies available: no Required blood products, implants, devices, and special equipment available: no Site/side marked: no Immediately prior to procedure, a time out was called: yes Patient identity confirmed: Verbally with patient Pre-procedure details: Procedure prep: alcohol. Sedation: Sedation type: None Anesthesia: Anesthesia method: Local infiltration Local anesthetic: xylocaine 1% Procedure specific details: A 3 mm punch biopsy was done after infiltration of the 0.5 ml of xylocaine 1%. A 5-0 Ethilon suturewas placed after. Site covered w/ a band aid. Post-procedure details: Procedure completion: Tolerated well, no immediate complications Assessment/Plan Assessment/Plan Diagnoses and all orders for this visit: Rash - hydrOXYzine pamoate (Vistaril) 50 MG capsule; Take 1 capsule (50 mg) by mouth every 12 (twelve) hours if needed for itching. Other orders - Skin Biopsy [1] Patient Active Problem List Diagnosis Moderately severe major depression (CMS/HCC) (HCC) Anxiety Acute gastritis without hemorrhage Elevated liver function tests Cigarette nicotine dependence without complication [2] Allergies Allergen Reactions Wellbutrin [Bupropion] Rash [3] Current Outpatient Medications on File Prior to Visit Medication Sig Dispense Refill [] acetaminophen (Tylenol Extra Strength) 500 MG tablet Take 1 tablet (500 mg) by mouth every 6 (six) hours if needed for mild pain. 120 tablet 0 betamethasone dipropionate 0.05 % cream Apply 2 times daily for up to 14 days 45 g 0 cetirizine (ZyrTEC) 10 MG tablet Take 1 tablet (10 mg) by mouth Once per day. 30 tablet 3 cyclobenzaprine (Flexeril) 10 MG tablet Take 1 tablet (10 mg) by mouth if needed at bedtime for muscle spasms. 20 tablet 0 diphenhydrAMINE (BENADryl) 25 MG tablet Take 1 tablet (25 mg) by mouth every 6 (six) hours if needed for itching. 30 tablet 1 escitalopram (Lexapro) 5 MG tablet Take 1 tablet (5 mg) by mouth Once per day. 30 tablet 2 famotidine (Pepcid) 20 MG tablet Take 1 tablet (20 mg) by mouth 2 times daily. 60 tablet 3 nicotine (Nicoderm CQ) 14 MG/24HR patch Place 1 patch on the skin 1 (one) time each day at the sametime. 14 patch 0 nicotine (Nicoderm CQ) 21 MG/24HR patch Place 1 patch on the skin 1 (one) time each day at the sametime. 42 patch 0 nicotine (Nicoderm CQ) 7 MG/24HR patch Place 1 patch on the skin 1 (one) time each day at the same time. 14 patch 0 nicotine polacrilex (Commit) 4 MG lozenge Dissolve 1 lozenge (4 mg) in the mouth every 2 (two) hours if needed for smoking cessation. 100 lozenge 1 Omeprazole 20 MG tablet delayed-release Take 1 tablet (20 mg) by mouth 2 times daily. 60 tablet 3 ondansetron (Zofran) 4 MG tablet 1-2 tablets PO TID prn nausea/vomiting 30 tablet 0 polyethylene glycol, PEG, 3350 (MiraLax) 17 GM/SCOOP powder Take 17 g by mouth Once per day. 510 g 0 predniSONE (Deltasone) 20 MG tablet Take 3 tabs PO daily x 3 days then take 2 tabs PO daily x 3 days then take 1 tab PO daily x 3 days 18 tablet 0 psyllium (Metamucil Smooth Texture) 58.6 % powder Take 5.12 g (3 g of fiber) by mouth Once per day.154 g 11 senna-docusate (Senokot S) 8.6-50 MG tablet Take 1 tablet by mouth if needed each day for constipation. 30 tablet 0 [DISCONTINUED] hydrOXYzine HCl (Atarax) 25 MG tablet Take 1 tablet (25 mg) by mouth if needed each day for anxiety. 30 tablet 0 No current facility-administered medications on file prior to visit. documented in this encounter Plan of Treatment Upcoming Encounters Date Type Department Care Team (Late st Contact Info) Description 02/18/2025 3:00 PM EST Office Visit [facility] [address] [place] [address] Selam Ernst NP [address] [place] [address] 02/22/2025 1:30 PM EST Clinical Support [facility] [address] [place], [place] [phone] documented as of this encounter Procedures Procedure Name Priority Date/Time Associated Diagnosis Comments SKIN BIOPSY Routine 02/15/2025 1:11 PM EST Rash documented in this encounter Results * Skin Biopsy (02/15/2025 1:11 PM EST) Radha Bird MD - 02/15/2025 1:11 PM EST Radha Cárdenas MD 02/15/2025 1:14 PM Skin Biopsy Date/Time: 02/15/2025 1:11 PM Performed by: Radha Cárdenas MD Authorized by: Radha Cárdenas MD Consent: Consent obtained: Verbal and written Consent given by: Patient Procedure risks and benefits discussed: Yes Patient questions answered: No Patient agrees, verbalizes understanding, and wants to proceed: No Educational handouts given: No Instructions and paperwork completed: Yes [place] protocol: Procedure explained and questions answered to patient or proxy's satisfaction: yes Relevant documents present and verified: no Test results available: no Imaging studies available: no Required blood products, implants, devices, and special equipment available: no Site/side marked: no Immediately prior to procedure, a time out was called: yes Patient identity confirmed: Verbally with patient Pre-procedure details: Procedure prep: alcohol. Sedation: Sedation type: None Anesthesia: Anesthesia method: Local infiltration Local anesthetic: xylocaine 1% Procedure specific details: A 3 mm punch biopsy was done after infiltration of the 0.5 ml of xylocaine 1%. A 5-0 Ethilon suture was placed after. Site covered w/ a band aid. Post-procedure details: Procedure completion: Tolerated well, no immediate complications us Radha Cárdenas MD DERM PROCEDURE ORDERABLES F inal Result documented in this encounter Visit Diagnoses Diagnosis Rash- Primary Rash and other nonspecific skin eruption documented in this encounter Additional Health Concerns Assessment Noted Time PHQ-9 Depression Total Score: 19 025 10:42 AM EST documented as of this encounter Care Teams Matcher Operator Relationship Specialty Start Date End Date Selam Ernst NP [address] [place] [phone] PCP - General Nurse Practitioner 01/07/25 documented as of this encounter
--- OUTSIDE RECORDS SUMMARY | 2025-02-17 17:42 | XMS_ITS | Encounter Summary ---
Author Organization [employer] Address [address] [place] [address] [place] [address] Care Team Providers Care Professional Security Officer Name Role Phone Selam Ernst NP Primary Care Provider [phone] Reason for Visit * Reason Onset Date Comments Chart Prep 02/17/2025 Encounter Details Date Type Department Care Team ([facility] Contact Info) Description 02/17/2025 Telephone [facility] [address] [place] [address] Selam Ernst NP [address] [place] [address] Chart Prep Social History Tobacco Use Types Packs/Day Years [...] encounter Miscellaneous Notes * Telephone Encounter - Char Cox MA - 02/17/2025 11:08 AM EST Chart Prep Labs: not done Images: not applicable Referrals: appointment pending Vaccines due: Covid, Flu, PCV20, Tdap, Hep B, and HPV Screenings: LMP and Cervical cancer, Lipid panel, Hep c, HIV. Overdue care gaps: Tobacco documented in this encounter Plan of Treatment Upcoming Encounters Date Type Department Care Team (Late st Contact Info) Description 02/18/2025 3:00 PM EST Office Visit [facility] [address] [place] [address] Selam Ernst NP [address] [place] [address] 02/22/2025 1:30 PM EST Clinical Support [facility] [address] [place] [address] documented as of this encounter Visit Diagnoses Not on filedocumented in this encounter Additional Health Concerns Assessment Noted Time PHQ-9 Depression Total Score: 19 01/14/2 025 10:42 AM EST documented as of this encounter Care Teams Professional Security Officer Relationship Specialty Start Date End Date Selam Ernst NP [address] [place] [phone] PCP - General Nurse Practitioner 01/07/25 documented as of this encounter
--- OUTSIDE RECORDS SUMMARY | 2025-02-17 17:42 | XMS_ITS | Encounter Summary ---
Author Organization [employer] Address [address] [place] [address] [address] [place] [address] Care Team Providers Care Inspector Filter Tip Name Role Phone Selam Ernst NP Primary Care Provider [phone] Encounter Details Date Type Department Care Team ([facility] Contact Info) Description 01/12/2025 Results Follow-Up [facility] [address] [place] [address] Selam Ernst, ERIC [address] [place] [address] POCT Glucose, POCT Hgb A1c, POCT Urine [...] Author Very difficult 01/14/2025 10:42 AM Jg Sanabria LMHC documented as of this encounter Plan of Treatment Upcoming Encounters Date Type Department Care Team (Late st Contact Info) Description 02/18/2025 3:00 PM EST Office Visit [facility] [address] [place] [address] Selam Ernst NP [address] [place] [address] 02/22/2025 1:30 PM EST Clinical Support [facility] [address] [place] [address] documented as of this encounter Visit Diagnoses Not on filedocumented in this encounter Additional Health Concerns Assessment Noted Time PHQ-9 Depression Total Score: 18 025 10:50 AM EST documented as of this encounter Care Teams Inspector Filter Tip Relationship Specialty Start Date End Date Selam Ernst NP [address] [place] [address] PCP - General Nurse Practitioner 01/07/25 documented as of this encounter
--- OUTSIDE RECORDS SUMMARY | 2025-02-17 17:42 | XMS_ITS | Patient Health Record ---
Author Organization [facility] Address [facility] [place] [address] Care Team Providers Care [place] Name Role Phone PEDRO SIL SOTO Primary Care Provider DAMIR OLIVEIRA Unavailable [phone] Reason For Referral No Information Medications Medication [...] 14 wiley No Smith via[place] o smith estado en contacto con alguien que haya estado [place] en los pasados 14 wiley No [place] [...] Notes: VISHAL LEE RN, ADN Lic . [id number], JOEY Araiza 01/09/2018 03:16:54 AM > VISHAL LEE RN, ADN Lic . [id number], JOEY Araiza 01/09/2018 03:16:54 AM > PRITESH XIONG RN BSN, Lic. [id number], ROSIBEL 01/27/2020 07:27:14 PM > VISHAL LEE RN, ADN Lic. [id number], JOEY Araiza 01/09/2018 03:16:54 AM > MADDY SIBLEY RN, BSN Lic. [id number], JULIO CESAR 02/01/2018 08:32:15 PM > Problems Problem Type SNOMED Code ICD Code Onset Dates Problem Status W/U Status Risk Notes Problem Drug allergy (147506967) Allergy history, drug (Z88.9) Active confirmed Plan Of Treatment No Information Insurance Providers Payer Name Payer Address Payer Phone Subscriber Number Group Number Insured Name Patient Relationship to Insured Coverage Start Date Coverage End Date MMM FFS PSG [address] [address] [place], [place] [id number] COLON SHEREEN ALLEN Self - patient is the insured 0 0 Medical (General) History Medical History History ICD Code Discos herniados hipoglucemia gastritis Hospitalization History Reason Date(Month/Year) Gracie 28/01/2018
--- OUTSIDE RECORDS SUMMARY | 2025-02-17 17:42 | XMS_ITS | Encounter Summary ---
Author Organization [employer] Address [address] [facility] [address] [place] [address] Care Team Providers Care Battery Container Inspector Name Role Phone Selam Ernst NP Primary Care Provider [phone] Encounter Details Date Type Department Care Team (Latest Contact Info) Description 02/14/2025 Travel Social History Tobacco Use Types Packs/Day [...] AM EST documented as of this encounter Plan of Treatment Upcoming Encounters Date Type Department Care Team (Late st Contact Info) Description 02/18/2025 3:00 PM EST Office Visit [facility] MEDICINE [address] [place] [address] Selam Ernst NP [address] [place] [phone] 02/22/2025 1:30 PM EST Clinical Support [facility] MED & PEDS [address] [place] [address] documented as of this encounter Visit Diagnoses Not on filedocumented in this encounter Additional Health Concerns Assessment Noted Time PHQ-9 Depression Total Score: 19 025 10:42 AM EST documented as of this encounter Care Teams Battery Container Inspector Relationship Specialty Start Date End Date Selam Ernst NP [address] [place] [phone] PCP - General Nurse Practitioner 01/07/25 documented as of this encounter
--- OUTSIDE RECORDS SUMMARY | 2025-02-17 17:42 | XMS_ITS | Clinical Summary ---
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 30 tablet 5 3:54 PM EST 01/15/20 25 026 Active polyethylene glycol, PEG, 3350 (MiraLax) 17 GM/SCOOP powderIndication s:Constipation, unspecified constipation type Take 17 g by mouth Once per day. 510 g 5 4:40 PM EST 01/27/20 25 025 Active psyllium (Metamucil Smooth Texture) 58.6 % powderIndication s:Constipation Take 5.12 g (3 g of fiber) by mouth Once per day. 154 g 11 01/27/20 25 Active betamethasone dipropionate 0.05 % creamIndications :Eczema, unspecified type Apply 2 times daily for up to 14 days 45 g 5 4:40 PM EST 01/27/20 25 Active Omeprazole 20 MG tablet delayed-releaseI ndications:Pepti c ulcer disease Take 1 tablet (20 mg) by mouth 2 times daily. 60 tablet 3 01/27/20 25 Active escitalopram (Lexapro) 5 MG tabletIndication s:Anxiety,Modera tely severe major depression (CMS/HCC) (HCC) Take 1 tablet (5 mg) by mouth Once per day. 30 tablet 2 5 4:40 PM EST 01/27/20 25 Active cetirizine (ZyrTEC) 10 MG tablet Take 1 tablet (10 mg) by mouth Once per day. 30 tablet 3 5 5:46 PM EST 02/11/20 25 026 Active famotidine (Pepcid) 20 MG tablet Take 1 tablet (20 mg) by mouth 2 times daily. 60 tablet 3 5 5:46 PM EST 02/11/20 25 026 Active predniSONE (Deltasone) 20 MG tablet Take 3 tabs PO daily x 3 days then take 2 tabs PO daily x 3 days then take 1 tab PO daily x 3 days 18 tablet 5 1:29 PM EST 02/11/20 Active diphenhydrAMINE (BENADryl) 25 MG tablet Take 1 tablet (25 mg) by mouth every 6 (six) hours if needed for itching. 30 tablet 1 5 5:46 PM EST 02/11/20 25 026 Active nicotine (Nicoderm CQ) 14 MG/24HR patch Place 1 patch on the skin 1 (one) time each day at the same time. 14 patch 5 1:29 PM EST 02/15/20 25 026 Active nicotine (Nicoderm CQ) 21 MG/24HR patch Place 1 patch on the skin 1 (one) time each day at the same time. 42 patch 5 1:29 PM EST 02/15/20 Active nicotine (Nicoderm CQ) 7 MG/24HR patch Place 1 patch on the skin 1 (one) time each day at the same time. 14 patch 5 1:29 PM EST 02/15/20 Active nicotine polacrilex (Commit) 4 MG lozenge Dissolve 1 lozenge (4 mg) in the mouth every 2 (two) hours if needed for smoking cessation. 100 lozenge 1 5 1:29 PM EST 02/15/20 Active hydrOXYzine pamoate (Vistaril) 50 MG capsuleIndicatio ns:Rash Take 1 capsule (50 mg) by mouth every 12 (twelve) hours if needed for itching. 60 capsule 5 5:28 PM EST 02/16/20 Active acetaminophen (Tylenol Extra Strength) 500 MG tablet Take 1 tablet (500 mg) by mouth every 6 (six) hours if needed for mild pain. 120 tablet 3:54 PM EST 01/15/20 025 Omeprazole 20 MG tablet delayed-release Take 1 tablet (20 mg) by mouth Once per day. 60 tablet 01/15/20 025 Discontinued sucralfate (Carafate) 1 g tablet Take 1 tablet (1 g) by mouth before breakfast, before lunch, and before evening meal for 10 days. 30 tablet 5 3:54 PM EST 01/15/20 025 buPROPion SR (Wellbutrin SR) 150 MG 12 hr tablet Take 1 tablet (150 mg) by mouth 2 times daily. Do not crush, chew, or split. 60 tablet 2 5 3:54 PM EST 01/15/20 025 Discontinued(Si de effects) hydrOXYzine HCl (Atarax) 25 MG tabletIndication s:Anxiety Take 1 tablet (25 mg) by mouth if needed each day for anxiety. 30 tablet 5 4:40 PM EST 01/27/20 025 Discontinued(Th erapy completed) Hospital, Clinic, or Other Facility Administered Medication Ordered Dose Route Frequency Start Date End Date Status triamcinolone acetonide (Kenalog-40) injection 40 mgIndications:Rash 40 mg IM Once 02/14/2025 02/14/2025 Ended Active Problems Problem Noted Date Diagnosed Date Cigarette nicotine dependence without complicati on 02/14/2025 Moderately severe major depression (CMS/HCC) Assessment & Plan (01/26/2025 11:51 AM EST): Orders: escitalopram (Lexapro) 5 MG tablet; Take 1 tablet (5 mg) by mouth Once per day. 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 Currently with passive SI, no plan apretude the factors include mosque and cultural beliefs + wants to be [...] organization. Date Type Department Care Team Description 02/17/[address] [address] Selam Ernst NP Chart Prep 02/15/2025 11:30 AM EST Office Visit [facility] MED & PEDS [address] [place] [address] Radha Cárdenas MD Rash (Primary Dx) 02/14/2025 11:00 AM EST Office Visit [facility] [address] [address] Aaron Cooper MD Rash (Primary Dx); Nasal congestion; Cigarette nicotine dependence without complication 02/14/2025 Travel 02/10/2025 2:40 PM EST Office Visit [facility] [address] [address] Laila Ahuja DO 02/10/2025 Travel 01/26/2025 10:30 AM EST Office Visit [address] [address] Selam Ernst NP Eczema, unspecified type (Primary Dx); Peptic ulcer disease; Cervical radiculopathy; Constipation, unspecified constipation type; Anxiety; Moderately severe major depression (CMS/HCC) (HCC) 01/26/2025 Travel 01/25/[address] [address] Selam Ernst NP Chart Prep 01/14/2025 11:00 AM EST Office Visit [facility] [address] [place] [phone] Juliette Joshi MD Acute gastritis without hemorrhage, unspecified gastritis type (Primary Dx); Elevated liver function tests; Moderately severe major depression (CMS/HCC) (HCC); Muscle spasm of right shoulder; Nausea; Epigastric pain 01/14/2025 Travel 01/14/2025 Patient Outreach [address] [address] Selam Ernst NP Care Coordination ([facility] outreach for [facility] housing search-referral completed ) 01/13/[address] [address] Oswaldo Lama [place] Results 01/12/2025 Results Follow-Up [address] [address] Selam Ernst NP POCT Glucose, POCT Hgb A1c, POCT Urine , Additional followed-up results: 5 01/07/2025 9:00 AM EST Office Visit [address] [address] Selam Ernst NP Nausea and vomiting, unspecified vomiting type (Primary Dx); Muscle spasm of right shoulder; Anxiety and depression; H/O hyperglycemia; Urinary urgency; Healthcare maintenance 01/07/2025 Travel 01/06/[address] [address] Oswaldo Lama [place] chart prep 12/03/2024 Population Health Risk Score Community [facility] () [address] [phone] Provider, Population Health Generic from Last 3 [...] Mass Index 29.05 02/15/2025 11:35 AM EST Plan of Treatment Upcoming Encounters Date Type Department Care Team (Late st Contact Info) Description 02/18/2025 3:00 PM EST Office Visit [facility] MEDICINE [address] [place] [address] Selam Ernst, ERIC [address] [place] [address] 02/22/2025 1:30 PM EST Clinical Support [facility] PEDS [address] [place], [place] [phone] Health Maintenance Due Date Last Done Comments [...] 01/07/2025 SDOH Screening 01/07/2026 01/07/2025 Tobacco Screening 02/15/2026 02/15/2025 Zoster Vaccines (1 of 2) 2042 RSV [...] WESTERGREN Routine 02/17/2025 1:38 PM EST Rash SKIN BIOPSY Routine 02/15/2025 1:11 PM EST Rash POCT INFLUENZA B (ID NOW RAPID MOLECULAR) Routine 02/14/2025 11:36 AM EST Nasal congestion POCT RAPID COVID ANTIGEN Routine 02/14/2025 11:35 AM EST Nasal congestion POCT INFLUENZA A (ID NOW RAPID MOLECULAR) Routine 02/14/2025 11:35 AM EST Nasal congestion POCT INFLUENZA A [...] hyperglycemia from Last 3 Months Results * Sed Rate by Modified Westergren (02/17/2025 1:38 PM EST) Erythrocyte Sedimentation Rate 14 1 - 20 MM/HR [facility] Comment:Patients with polycy themia and many hemoglobin abnormalitiesmay have depressed sed rates whereas patients with anemiamay have elevated sed rates. Blood Venous blood specimen / Unknown 02/17/2025 1:38 PM EST 02/17/2025 4:00 PM EST us Aaron Cooper MD LAB BLOOD ORDERABLES Final Resul t [facility] [address] [place] [phone] * Skin Biopsy (02/15/2025 1:11 PM EST) Narrative Radha Cárdenas MD - 02/15/2025 1:11 PM EST Radha [...] given: No Instructions and paperwork completed: Yes [place] protocol: Procedure explained and questions answered to [...] Procedure completion: Tolerated well, no immediate complications Radha Cárdenas MD DERM PROCEDURE ORDERABLES F inal Result * Influenza B (ID NOW Rapid Molecular) (02/14/2025 11:36 AM EST) Only the most recent of2 resultswithin the time period is included. Influenza B Negative Negative, Indeterminate [facility] Swab 02/14/2025 11:3 6 AM EST Aaron Cooper MD POINT OF CARE TEST ENTER/EDIT OR DERABLES Final Result Performing Organization Address [facility] Co de Phone Number [facility] [address] [place] [phone] * Influenza A (ID NOW Rapid Molecular) (02/14/2025 11:35 AM EST) Only the most recent of2 resultswithin the time period is included. Influenza A Negative Negative, Indeterminate [facility] Swab 02/14/2025 11:3 5 AM EST Aaron Cooper MD POINT OF CARE TEST ENTER/EDIT OR DERABLES Final Result Performing Organization Address City/[facility] Co de Phone Number [facility] [address] [place] [phone] * POCT Rapid COVID Ag (02/14/2025 11:35 AM EST) Only the most recent of2 resultswithin the time period is included. Rapid COVID Ag Negative Swab 02/14/2025 11:3 5 AM EST Aaron Cooper MD POINT OF CARE TEST ENTER/EDIT OR DERABLES Final Result * TSH W/Reflex to FT4 (01/07/2025 11:06 AM EST) TSH reflex Free T4 0.63 0.32 - 4.0 uIU/mL [facility] Blood Venous blood specimen / Unknown 01/07/2025 11:06 AM EST 01/07/2025 1:00 PM EST Selam Ernst NP LAB BLOOD ORDERABLES Final Resu lt [facility] [address] [place] [phone] * CBC auto differential (01/07/2025 11:06 AM EST) White Blood Count 7.0 4.8 - 10.8 X10*3/uL [facility] Red Blood Count 4.60 4.20 - 5.50 X10*6/uL [facility] Hemoglobin 14.3 12.0 - 16.0 g/dl [facility] Hematocrit 43.0 37.0 - 47.0 % [facility] Mean Corpuscular Volume 93.5 80.0 - 98.0 fL [facility] Mean Corpuscular Hemoglobin 31.1 27.0 - 33.0 pg [facility] Mean Corpuscular HGB Conc 33.3 31.0 - 35.0 g/dl [facility] Red Cell Distribution Width 12.1 11.0 - 16.0 % [facility] Platelet Count 226 160 - 400 X10*3/uL [facility] Mean Platelet Volume 11.6 9.4 - 12.3 fL [facility] Neutrophils Percent Auto 61.4 45 - 73 % [facility] Imm Gran Pct Auto 0.1 0.0 - 0.4 % [facility] Lymphocytes Percent Auto 29.0 20 - 40 % [facility] Monocytes Percent Auto 7.6 2 - 11 % [facility] Eosinophils Percent Auto 1.6 0 - 4 % [facility] Basophils Percent Auto 0.3 0 - 2 % [facility] NRBC Pct Auto 0.0 0.0 - 0.2 /100WBC [facility] Neutrophils Absolute Auto 4.3 2.0 - 8.3 x10*3/uL [facility] Imm Gran Abs Auto 0.01 0.00 - 0.03 X10*3/uL [facility] Lymphocytes Absolute Auto 2.0 1.2 - 4.9 X10*3/uL [facility] Monocytes Absolute Auto 0.5 0.1 - 1.2 X10*3/uL [facility] Eosinophils Absolute Auto 0.1 0.0 - 0.4 X10*3/uL [facility] Basophils Absolute Auto 0.0 0.0 - 0.2 X10*3/uL [facility] NRBC Abs Auto 0.000 0.0 - 0.012 X10*3/uL [facility] Blood Venous blood specimen / Unknown 01/07/2025 11:06 AM EST 01/07/2025 1:00 PM EST us Selam Ernst NP LAB BLOOD ORDERABLES Final Resu lt Performing Organization Address City/[facility]/ZIP Co de Phone Number [facility] [address] [place] [phone] * Lipase (01/07/2025 11:06 AM EST) Lipase 20 8 - 78 U/L [facility] Blood Venous blood specimen / Unknown 01/07/2025 11:06 AM EST 01/07/2025 1:00 PM EST Selam Ernst NP LAB BLOOD ORDERABLES Final Resu lt [facility] [address] [place] [phone] * (ABNORMAL) Comprehensive Metabolic Panel (01/07/2025 11:06 AM EST) [facility] Sodium 141 135 - 145 mmol/L [facility] Potassium 4.1 3.3 - 5.1 mmol/L [facility] Chloride 108 96 - 108 mmol/L [facility] Carbon Dioxide 25 22 - 29 mmol/L [facility] Anion Gap 12 12 - 20 [facility] Urea Nitrogen (BUN) 9 9 - 16 mg/dL [facility] Creatinine, Serum 0.77 0.5 - 1.4 mg/dL [facility] Estimated Glomerular Filt Rate >60 [facility] Comment:Chronic Kidney Disea se: Estimated GFR < 60 mL/min/[id number] Kidney Disease: Estimated GFR < 15 mL/min/1.73m2 Glucose 79 60 - 115 mg/dL [facility] Calcium 9.7 8.4 - 10.2 mg/dL [facility] Bilirubin, Total 0.9 0.0 - 1.0 mg/dL [facility] Aspartate Amino Transferase 39(H) 5 - 31 U/L [facility] Alanine Aminotransferase 33(H) 0 - 31 U/L [facility] Total Protein 8.0 6.5 - 8.0 g/dL [facility] Albumin Level 4.9 3.5 - 5.0 g/dL [facility] Alkaline Phosphatase 71 39 - 117 U/L [facility] Blood Venous blood specimen / Unknown 01/07/2025 11:06 AM EST 01/07/2025 1:00 PM EST Selam Ernst NP LAB BLOOD ORDERABLES Final Resu lt [facility] [address] [place] [phone] * POCT Urine (01/07/2025 10:22 AM EST) Preg Test, Ur Negative Negative, Indeterminate, None Detected, Invalid, Specimen unsatisfactory for evaluation, Weakly Positive, 2+ QC Media Lot # [id number] Lot# Expiration Date Urine 01/07/2025 10:2 2 AM EST Selam Ernst NP POINT OF CARE TEST ENTER/EDIT O RDERABLES Final Result * (ABNORMAL) POCT Urinalysis (01/07/2025 10:20 AM EST) Pathologist [facility] Color, UA Yellow Clarity, UA Clear Glucose, [...] POCT Hgb A1c (01/07/2025 9:44 AM EST) [facility] Hemoglobin A1C 4.9 4.0 - 5.7 % QC Media Lot # [id number] Lot# Expiration Date Blood 01/07/2025 9:44 AM EST Selam Ernst NP POINT OF CARE TEST ENTER/EDIT O RDERABLES Final Result * POCT Glucose (01/07/2025 9:43 AM EST) Pathologist [facility] Glucose Blood, POC 95 60 - 200 mg/dL Comment:Fasting QC Media Lot # [id number] Lot# Expiration Date Blood Capillary blood specimen / Unknown 01/07/2025 9:43 AM EST Selam Ernst NP POINT OF CARE TEST ENTER/EDIT O RDERABLES Final Result from Last [address] [place] [address] C3 Care Teams 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
[2025-02-18 05:29] LABS: Lyme Abs Screen <0.90 index
== END 2025-02-17 13:33 | disposition home or self-care (01) ==
LOC: HO.HHCL 13:32
PROVIDERS: Visit Provider Emergency Medicine
DX: R21 Rash and other nonspecific skin eruption (principal); Z01.84 Encounter for antibody response examination
CPT/HCPCS: 36415; 85652; 86038; 86592; 86617; 86618